=== PATIENT | female | born 1945 | race Caucasian/White ===

== ENCOUNTER → 2021-08-31 | Outpatient (CLI) | payer MEDICARE, BC ==
[~2021-08-31] MED LIST: NORCO 5-325 TA1 EACH PO
[2021-08-31 09:16] LABS: HEMOGLOBIN 13.1 gm/dl (12.3-15.3); RED BLOOD COUNT 4.85 M/UL (4.00-5.10); WHITE BLOOD COUNT 7.4 K/UL (4.5-11.0)
[2021-09-01 08:16] LABS: A/G RATIO 1.8 (1.2-2.2); ALKALINE PHOSPHATASE, S 120 IU/L (44-121); ALT (SGPT) 12 IU/L (0-32); AST (SGOT) 17 IU/L (0-40); BILIRUBIN, TOTAL 0.6 mg/dL (0.0-1.2); BUN 19 mg/dL (8-27); BUN/CREATININE RATIO 17 (12-28); CALCIUM, SERUM 9.3 mg/dL (8.7-10.3); CARBON DIOXIDE, TOTAL 18 mmol/L (20-29); CHLORIDE, SERUM 106 mmol/L (96-106); CREATININE, SERUM 1.13 mg/dL (0.57-1.00); EGFR IF AFRICN AM 55 (>59); EGFR IF NONAFRICN AM 48 (>59); GLOBULIN, TOTAL 2.4 g/dL (1.5-4.5); GLUCOSE, SERUM 140 mg/dL (65-99); POTASSIUM, SERUM 4.8 mmol/L (3.5-5.2); PROTEIN, TOTAL, SERUM 6.8 g/dL (6.0-8.5); SODIUM, SERUM 140 mmol/L (134-144)
[2021-09-01 13:16] LABS: C-REACTIVE PROTEIN, QUANT <1 mg/L (0-10)
== END ==
LOC: LAB 08:40
PROVIDERS: Internal Medicine
DX: M10.9 Gout, unspecified (principal); M15.9 Polyosteoarthritis, unspecified; N18.9 Chronic kidney disease, unspecified
CPT/HCPCS: 36415; 80053; 84550; 85025; 85652; 86140

== ENCOUNTER → 2022-03-18 | Outpatient (CLI) | payer MEDICARE, BC | LOC: US 08:02 | DX: N17.9 Acute kidney failure, unspecified (principal); N18.9 Chronic kidney disease, unspecified | CPT/HCPCS: 93975 ==